=== PATIENT | male | born 1975 | race Caucasian/White ===

== ENCOUNTER 2017-12-07 14:48 | Emergency (ER) | payer SELFPAY ==
[~2017-12-07] VITALS: Ht 165.1 cm; Wt 100.0 kg
[2017-12-07] MEDS ORDERED: HYDROCODONE/ACETAMINOPHEN 5/325MG TABLET PO ONE (19:00)
[2017-12-07 19:48] VITALS: BP 165/101
== END 2017-12-07 19:52 | disposition home or self-care (01) ==
LOC: ER 14:48
DX: S20.212A Contusion of left front wall of thorax, initial encounter (principal); F17.200 Nicotine dependence, unspecified, uncomplicated; F12.10 Cannabis abuse, uncomplicated; Z88.6 Allergy status to analgesic agent; V28.0XXA Motorcycle driver injured in noncollision transport accident in nontraffic accident, initial encounter; Y93.89 Activity, other specified; Y92.488 Other paved roadways as the place of occurrence of the external cause
CPT/HCPCS: 71045; 73030; 99284

== ENCOUNTER 2018-10-10 09:10 | Emergency (ER) | payer MEDICAID ==
[~2018-10-10] VITALS: Ht 172.7 cm; Wt 90.0 kg
[2018-10-10 09:12] VITALS: BP 123/89
[2018-10-10] MEDS ORDERED: ONDANSETRON HCL 4MG/2ML INJ IV STA (09:18)
[2018-10-10] MEDS ORDERED: SODIUM CHLORIDE 0.9% 1,000 ML IV ONE (09:18)
[2018-10-10] MEDS ORDERED: LORAZEPAM 2MG/ML CPJ IV ONE (09:30)
== END 2018-10-10 11:07 | disposition left against medical advice (07) ==
LOC: ER 09:10
DX: T50.7X1A Poisoning by analeptics and opioid receptor antagonists, accidental (unintentional), initial encounter (principal); G92 Toxic encephalopathy; R41.82 Altered mental status, unspecified; R61 Generalized hyperhidrosis; F12.10 Cannabis abuse, uncomplicated; F11.10 Opioid abuse, uncomplicated; Z88.6 Allergy status to analgesic agent; Y92.89 Other specified places as the place of occurrence of the external cause
CPT/HCPCS: 99283; J7030

== ENCOUNTER 2022-11-24 12:15 | Emergency (ER) | payer MEDICAID ==
[~2022-11-24] VITALS: Ht 175.3 cm; Wt 80.0 kg
[2022-11-24 12:18] VITALS: O2SAT 97
[2022-11-24] MEDS ORDERED: LORAZEPAM 2MG/ML CPJ IV ONE (12:45)
[2022-11-24] MEDS ORDERED: SODIUM CHLORIDE 0.9% 1,000 ML IV ONE (12:45)
[2022-11-24 12:53] LABS: EOSINOPHILS % 0.6 % (0.0-5.0); HEMATOCRIT. 44.8 % (42.0-52.0); HEMOGLOBIN. 15.7 g/dL (14.0-18.0); LYMPHOCYTES % 13.6 % (20.0-50.0); MEAN CORPUSCULAR HEMOGLOBIN 31.5 pg (28.0-32.0); MEAN CORPUSCULAR VOLUME 90.1 fL (80.0-94.0); MEAN PLATELET VOLUME 9.1 fl (7.4-10.4); MONOCYTES % 8.2 % (2.0-8.0); NEUTROPHILS % 75.6 % (40.0-76.0); PLATELET 235 x1000/uL (130-400); RED BLOOD CELL COUNT 4.98 mill/uL (4.7-6.1); WHITE BLOOD COUNT 8.5 x1000/uL (4.5-11.0)
[2022-11-24 13:05] LABS: CHLORIDE 107 mEq/L (98-107); INDEX HEMOLYSI 1 (1-3); INDEX ICTERIC 1 (1-4); INDEX LIPEMIC 1 (1-3); POTASSIUM 4.1 mEq/L (3.5-5.1); SODIUM 136 mEq/L (136-145)
[2022-11-24 13:13] LABS: ALANINE AMINOTRANSFERASE 55 IU/L (13-61); ALBUMIN 3.5 g/dL (3.4-5.0); ASPARTATE AMINOTRANSFERASE 30 IU/L (15-37); BILIRUBIN TOTAL 0.8 mg/dL (0.1-1.0); CALCIUM 8.6 mg/dL (8.5-10.1); CARBON DIOXIDE 29 mEq/L (21-32); CREATININE 0.8 mg/dL (0.6-1.3); GLUCOSE 112 mg/dL (70-105); PROTEIN TOTAL 7.6 g/dL (6.0-8.3); TROPONIN I HIGH SENSITIVITY 37 ng/L (<78); UREA NITROGEN BLOOD 11 mg/dL (7-21)
[2022-11-24 15:13] LABS: TROPONIN I HIGH SENSITIVITY 36 ng/L (<78)
[2022-11-24 17:15] VITALS: BP 159/104; PULSE 83; RESP 19; TEMP 98.1
== END 2022-11-24 17:27 ==
LOC: ER 12:30
DX: R07.89 Other chest pain (principal); F14.90 Cocaine use, unspecified, uncomplicated; I10 Essential (primary) hypertension; F12.90 Cannabis use, unspecified, uncomplicated; F11.90 Opioid use, unspecified, uncomplicated; E11.9 Type 2 diabetes mellitus without complications; Z88.6 Allergy status to analgesic agent
CPT/HCPCS: 80053; 83880; 85025; 84484; 36415; 71045; 93005; 96361; 96374; 99285; J2060; J7030; Z7610 ×3